=== PATIENT | male | born 1985 ===

== ENCOUNTER 2018-03-15 11:33 | Emergency (ER) | payer OTHER ==
[2018-03-15 11:38] VITALS: TEMP 97; O2SAT 98
[2018-03-15 11:39] VITALS: BMI 31.4
[2018-03-15] MEDS ORDERED: Famotidine 40 MG/5 ML PO STA (12:10)
[2018-03-15] MEDS ORDERED: Erythromycin 0.5% Ophth Oint 1 APPLIC/3.5 G OS ONE (12:10)
--- NOTE | 2018-03-15 12:21 | ED PDOC ---
HPI: Eye Injury/Pain Time Seen by Provider: 03/15/18 12:00 Chief Complaint (Nursing): Eye Problem Chief Complaint (Provider): L eyelid swelling/itching History Per: Patient History/Exam Limitations: no limitations Onset/Duration Of Symptoms: Days (x2) Current Symptoms Are (Timing): Still Present Injury To Eye?: No Wears Contact Lens?: No Associated Symptoms: Swelling, Itching, Discharge From Eye. denies: Pain, Decreased Vision Additional Complaint(s): 32 y/o male with no significant PMHx presents to the ED complaining of swelling and itching to the left upper eyelid, onset two days ago. Patient reports of mucous discharge to the same eye since this morning upon waking. 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 Otherwise: (-) fever, (-) chills, (-) glasses use, (-) contact use, (-) vision change, (-) recent illness, (-)sick contacts. Patient has no other complaints at present. Tetanus vaccination: up to date. PMD: No Provider Past Medical History Reviewed: Historical Data, Nursing Documentation, Vital Signs Vital Signs: Last Vital Signs Temp 97 F L 03/15/18 11:37 Pulse 66 03/15/18 11:37 Resp BP 129/74 03/15/18 11:37 Pulse Ox 98 03/15/18 11:37 - Medical History PMH: No Chronic Diseases - Surgical History Surgical History: No Surg Hx - Family History Family History: States: Unknown Family Hx - Social History Current smoker - smoking cessation education provided: No Alcohol: None Drugs: Denies - Immunization History Hx Tetanus Toxoid Vaccination: Yes - Home Medications Home Medications: Ambulatory Orders Medication Instructions Recorded Erythromycin 0.5% [Ilytocin] 1 applic OS QID #1 tube 03/15/18 - Allergies Allergies/Adverse Reactions: Allergies Allergy/AdvReac Type Severity Reaction Status Date / Time No Known Allergies Allergy Verified 03/15/18 11:53 Review of Systems ROS Statement: Except As Marked, All Systems Reviewed And Found Negative Constitutional: Negative for: Fever, Chills Eyes: Positive for: Eyelid Inflammation (associated with itching), Other ( Mucous discharge). Negative for: Pain, Vision Change Physical Exam - Reviewed Nursing Documentation Reviewed: Yes Vital Signs Reviewed: Yes - Physical Exam Comments: GENERAL APPEARANCE: Patient is awake, alert, oriented x 3, in no acute distress. HEENT: (-) facial swelling and erythema, (-) facial blisters. Scant amount of mucous discharge of medial canthus of the left eye (-) periorbital tenderness VISUAL ACUITIES: Left eye: 20/ 25 ; Right eye: 20/ 20; Both: 20/20. LIDS & LASHES: (+) mild, nontender, nonerythematous edema to the upper left eyelid. No crusting of the eyelashes. PUPILS: Pupils equal and reactive. EOM's: Intact and painless LID EVERSION: (-) foreign body. CONJUNCTIVAE: (+) faint conjunctival injection of the left eye. ANTERIOR CHAMBER: (-) foreign body, (-) hyphema. CHEST AND RESPIRATORY: (-) rales, (-) rhonchi, (-) wheezes, (-) rub; breath sounds equal bilaterally. Respirations even and nonlabored. HEART AND CARDIOVASCULAR: (-) irregularity; (-) murmur NECK: Supple, FROM (-) lymphadenopathy ENT: Mucus membranes moist. Airway patent, (-) stridor. - ECG O2 Sat by Pulse Oximetry: 98 (RA) Pulse Ox Interpretation: Normal Medical Decision Making Medical Decision Making: Time: 1210 Impression: Eyelid inflammation, bacterial conjunctivitis Plan: -- Benadryl 50 mg PO (Not driving home) -- Erythromycin 0.5% 1 applic OS -- Pepcid 40 mg PO On re-evaluation, patient reports improvement of symptoms. On exam, patient remains AAOx3, in no acute distress. Lungs clear to auscultation, cardiac RRR, repeat neuro exam shows no focal findings. VSS, stable for discharge. Lab/Diagnostic results d/w the patient in great detail. Diagnosis of eyelid inflammation, conjunctivitis d/w the patient. Based on history, exam and diagnostic results, plan will be for outpatient follow up. Patient instructed to follow-up with pmd / referral provided / the clinic in 1- 2 days without fail. Advised to take medication as prescribed. Return to the emergency room at any time for any new or worsening symptoms. Patient states he fully agrees with and understands discharge instructions. States that he agrees with the plan and disposition. Verbalized and repeated discharge instructions and plan. I have given the patient opportunity to ask any additional questions. Scribe Attestation: Documented by Aimee Stokes acting as a scribe for Kathy Vogel PA-C. Provider Scribe Attestation: All medical record entries made by the Scribe were at my direction and personally dictated by me. I have reviewed the chart and agree that the record accurately reflects my personal performance of the history, physical exam, medical decision making, and the department course for this patient. I have also personally directed, reviewed, and agree with the discharge instructions and disposition. Disposition - Clinical Impression Clinical Impression: Eye infection, Inflammation of eyelid, left, Conjunctivitis - Patient ED Disposition Is Patient to be Admitted: No Counseled Patient/Family Regarding: Studies Performed, Diagnosis, Need For Followup, Rx Given - Disposition Referrals: Ramiro Shah MD [Staff Provider] - [facility] [Outside] Disposition: Routine/Home Disposition Time: 13:11 Condition: STABLE Additional Instructions: FOLLOW UP WITH OPHTHO/CLINIC FOR FURTHER EVALUATION. APPLY WARM COMPRESSES TO AFFECTED AREA 4X/DAY. The emergency medical care you received today was directed at your acute symptoms. If you were prescribed any medication, please fill it and take as directed. It may take several days for your symptoms to resolve. Return to the Emergency Department if your symptoms worsen, do not improve, or if you have any other problems. Please contact your doctor in 2 days for re-evaluation and follow up / or call one of the physicians/clinics you have been referred to that are listed on the Patient Visit Information form that is included in your discharge packet. Bring any paperwork you were given at discharge with you along with any medications you are taking to your follow up visit. Our treatment cannot replace ongoing medical care by a primary care provider (PCP) outside of the emergency department. Prescriptions: Erythromycin 0.5% [Ilytocin] 1 applic OS QID #1 tube Instructions: Conjunctivitis ([place]), How to Use Eye Ointment Forms: [facility] ([place]er) Print Language: AZERI - POA Present On Arrival: None
[2018-03-15 13:30] VITALS: BP 124/80; PULSE 70; RESP 18
== END 2018-03-15 13:25 | disposition home or self-care (01) ==
LOC: H.ER 11:33
DX: H44.002 Unspecified purulent endophthalmitis, left eye (principal); H10.9 Unspecified conjunctivitis; H01.9 Unspecified inflammation of eyelid